=== PATIENT | male | born 1985 | race Caucasian/White ===

== ENCOUNTER 2019-04-02 15:31 | Emergency (ER) | payer OTHER ==
--- NOTE | 2019-04-02 16:18 | UC ---
Skin Complaint HPI - HPI Summary HPI Summary: 33 yo male has had 4 perianal abscess in the past 6 mos most have spontaneously drained he popped one works in warm /sweaty environment - History of Current Complaint Chief Complaint: [facility] Time Seen by Provider: 04/02/19 16:04 Stated Complaint: BOIL Hx Obtained From: Patient Onset Severity: Mild Current Severity: Mild Pain Intensity: 1 Pain Scale Used: 0-10 Numeric Location: Discrete - perianal Character: Pain Aggravating Factor(s): Touch Associated Signs & Symptoms: Positive: Drainage - Allergy/Home Medications Allergies/Adverse Reactions: Allergies Allergy/AdvReac Type Severity Reaction Status Date / Time No Known Allergies Allergy Verified 04/02/19 15:51 PMH/Surg Hx/FS Hx/Imm Hx Previously Healthy: Yes - Surgical History Surgical History: None - Family History Known Family History: Positive: Cardiac Disease, Hypertension - Social History Alcohol Use: Daily Substance Use Type: None Smoking Status (MU): Never Smoked Tobacco Review of Systems All Other Systems Reviewed And Are Negative: Yes Constitutional: Positive: Negative Skin: Positive: Negative Eyes: Positive: Negative ENT: Positive: Negative Respiratory: Positive: Negative Cardiovascular: Positive: Negative Gastrointestinal: Positive: Negative Genitourinary: Positive: Negative Motor: Positive: Negative Neurovascular: Positive: Negative Musculoskeletal: Positive: Negative Neurological: Positive: Negative Psychological: Positive: Negative Physical Exam Triage Information Reviewed: Yes Appearance: Well-Appearing, No Pain Distress, Well-Nourished Vital Signs: Initial Vital Signs Temp 98 F 04/02/19 15:42 Pulse 83 04/02/19 15:42 Resp 17 04/02/19 15:42 BP 142/90 04/02/19 15:42 Pulse Ox 98 04/02/19 15:42 Vital Signs Reviewed: Yes Eyes: Positive: Conjunctiva Clear ENT: Positive: Hearing grossly normal. Negative: Nasal congestion, Nasal drainage, Trismus, Muffled voice, Hoarse voice Neck: Positive: Supple, Nontender, No Lymphadenopathy Respiratory: Positive: Lungs clear, Normal breath sounds, No respiratory distress, No accessory muscle use Cardiovascular: Positive: RRR, No Murmur Abdomen Description: Positive: Nontender, No Organomegaly, Other: - two perianal areas ("pits") from prior abscess noted, no current areas of fluctuation or redness, no curretn d/c. Negative: CVA Tenderness (R), CVA Tenderness (L) Bowel Sounds: Positive: Present Musculoskeletal: Positive: ROM Intact, No Edema Neurological: Positive: Alert Psychological Exam: Normal Skin Exam: Normal Course/Dx - Diagnoses Provider Diagnosis: Perianal abscess, Elevated BP without diagnosis of hypertension Discharge - Sign-Out/Discharge Documenting (check all that apply): Patient Departure All imaging exams completed and their final reports reviewed: No Studies - Discharge Plan Condition: Stable Disposition: HOME Prescriptions: Cephalexin CAP* [Keflex CAP*] 500 mg PO QID #28 cap Patient Education Materials: Rectal Abscess (ED) Referrals: Newton Platt MD [Medical Doctor] - As Soon As Possible Additional Instructions: You currently do not have an abscess that needs to be drained SITZ bath daily recheck for new or worsening symptoms I don't know how to explain floridalma t you have had four ROXANA-ANAL abscesses in the past 6 mos Sometime abscesses this close to the anus can develop fistulas (little tunnels that connect to the rectum) I suggest you follow up with a surgeon to get there recommendations Today your BP was a little high...I suggest you see your primary care physician in 12 weeks for recheck - Billing Disposition and Condition Condition: STABLE Disposition: Home
[2019-04-02 16:39] VITALS: BP 136/86
== END 2019-04-02 16:37 | disposition home or self-care (01) ==
LOC: UCEAST 15:31
DX: K61.0 Anal abscess (principal); R03.0 Elevated blood-pressure reading, without diagnosis of hypertension
CPT/HCPCS: 99202; G0463